=== PATIENT | female | born 1990 | race African-American/Black ===

== ENCOUNTER 2020-10-18 20:04 | Emergency (ER) | payer OTHER ==
[~2020-10-18] VITALS: Ht 165.1 cm; Wt 54.4 kg
[2020-10-18] MEDS ORDERED: PREDNISONE20 MG PO (21:11)
== END 2020-10-18 21:36 | disposition home or self-care (01) ==
LOC: FSED 21:05
DX: L42 Pityriasis rosea (principal)
CPT/HCPCS: 99282

== ENCOUNTER 2020-10-27 16:13 | Emergency (ER) | payer OTHER ==
[~2020-10-27] VITALS: Ht 165.1 cm; Wt 54.4 kg
[~2020-10-27 16:13] MED LIST: PREDNISONE20 MG PO
[2020-10-27] MEDS ORDERED: ACYCLOVIR800 MG PO ×2 (20:16→20:20)
[2020-10-27] MEDS ORDERED: CETIRIZINE HCL10 MG PO ×2 (20:18→20:20)
[2020-10-27] MEDS ORDERED: HYDROXYZINE HCL25 MG PO ×2 (20:18→20:20)
[2020-10-27 20:29] VITALS: BP 104/61
== END 2020-10-27 20:29 | disposition home or self-care (01) ==
LOC: FSED 19:56
DX: L42 Pityriasis rosea (principal); L29.9 Pruritus, unspecified
CPT/HCPCS: 81025; 99283